=== PATIENT | male | born 1980 | race Caucasian/White ===

== ENCOUNTER 2024-04-25 18:46 | Inpatient (IN) | payer MEDICAID, OTHER ==
[~2024-04-25] VITALS: Ht 172.7 cm; Wt 74.7 kg
[2024-04-25 19:22] LABS: Basophils # (auto) 0.1 10 ^3/uL (0-0.2); Basophils % (auto) 0.8 % (0.0-2.0); Eosinophils # (auto) 0.1 10 ^3/uL (0-0.8); Eosinophils % (auto) 0.6 % (0.0-7.0); Hematocrit 49.6 % (41.0-53.0); Hemoglobin 15.9 g/dL (13.5-17.5); Lymphocytes # (auto) 2.1 10 ^3/uL (0.4-5.4); Mean Corpuscular Hemoglobin 30.1 pg (28.0-32.0); Mean Corpuscular Hgb Conc. 32.1 g/dL (32.0-36.0); Mean Corpuscular Volume 93.9 fL (80.0-100.0); Monocytes % (auto) 11.4 % (0.0-12.0); Neutrophils # (auto) 5.5 10 ^3/uL (1.6-8.6); Neutrophils % (auto) 63.2 % (37.0-80.0); Nucleated Red Blood Cells % 0.2 %; Platelet Count (auto) 245 10^3/uL (140-450); Red Blood Cells 5.28 10^6/uL (4.5-5.90); Red Cell Distribution Width 14.6 % (11.8-14.3); White Blood Cell 8.7 10^3/uL (4.4-10.8)
--- NOTE | 2024-04-25 19:24 | DVH ---
CHEST RADIOGRAPH Indication: sob Technique: Frontal and lateral view of the chest was obtained Comparison: None FINDINGS: Lines and Tubes: None Lungs: Clear Pleura: No effusion. No pneumothorax. Cardiomediastinal contours: Moderate cardiomegaly Bones: Unremarkable IMPRESSION: Moderate cardiomegaly.
[2024-04-25 19:41] LABS: Albumin 3.9 g/dL (3.2-4.8); Alkaline Phosphatase 101 U/L (46-116); Anion Gap 9 (5-15); BUN/Creatinine Ratio 16.3 (10.0-20.0); Calcium 9.8 mg/dL (8.7-10.4); Carbon Dioxide 25 mmol/L (20-31); Chloride 101 mmol/L (98-107); Potassium 4.2 mmol/L (3.5-5.1); Total Protein 6.3 g/dL (5.7-8.2)
[2024-04-25 19:44] LABS: Alanine Aminotransferase 184 U/L (7-40); Aspartate Aminotransferase 182 U/L (13-40); Bilirubin, Total 1.6 mg/dL (0.2-1.0); Blood Urea Nitrogen 25 mg/dL (9-23); Glucose 117 mg/dL (74-106); Sodium 135 mmol/L (136-145)
--- NOTE | 2024-04-25 20:35 | ED.PDOC ---
HPI Comments 43-year-old male with significant history of heart failure presents in the ED with cough x1 month and increase in dyspnea on exertion. Patient states dry cough x1 month he was diagnosed and treated for pneumonia about four weeks ago at [facility]. States over the past week or two he has been having difficulty in breathing walking over 20 ft coughing or shortness of breath any other related symptoms of chest pain, fever, chills, nausea, vomiting. Follows with cardiology on a [facility], states his last ejection fraction was 15%. Puts history of CHF, hypertension and borderline diabetes type 2. Patient was last hospital admission was not August of 2023 for CHF. Chief Complaint: Cough Time Seen by MD: 19:01 Primary Care Provider: lauro Reviewed Notes: Nurses Notes, Medications, Allergies Allergies: Coded Allergies: Azithromycin (Verified Allergy, Unknown, 04/25/24) Information Source: Patient Mode of Arrival: Wheelchair Past Medical History PAST MEDICAL HISTORY: CHF, DM, HTN Constitutional: denies: chills, diaphoresis, fatigue, fever, malaise, sweats, weakness, others EENTM: denies: blurred vision, double vision, ear bleeding, ear discharge, ear drainage, ear pain, ear ringing, eye pain, eye redness, hearing loss, mouth pain, mouth swelling, nasal discharge, nose bleeding, nose congestion, nose pain, photophobia, tearing, throat pain, throat swelling, voice changes, others Respiratory: reports: cough, SOB with excertion; denies: hemoptysis, orthopnea, SOB at rest, shortness of breath, stridor, wheezing, others Cardiovascular: denies: chest pain, dizzy spells, diaphoresis, Dyspnea on exertion, edema, irregular heart beat, left arm pain, lightheadedness, palpitations, PND, syncope, others Gastrointestinal: denies: abdomen distended, abdominal pain, blood streaked bowels, constipated, diarrhea, dysphagia, difficulty swallowing, hematemesis, melena, nausea, poor appetite, poor fluid intake, rectal bleeding, rectal pain, vomiting, others Genitourinary: denies: burning, dysuria, flank pain, frequency, hematuria, incontinence, penile discharge, penile sore, pain, testicle pain, testicle swelling, urgency, others Neurological: denies: dizziness, fainting, headache, left sided numbness, left sided weakness, numbness, paresthesia, pre-existing deficit, right sided numbness, right sided weakness, seizure, speech problems, tingling, tremors, weakness, others Musculoskeletal: denies: back pain, gout, joint pain, joint swelling, muscle pain, muscle stiffness, neck pain, others Integumetry: denies: bruises, change in color, change in hair/nails, dryness, laceration, lesions, lumps, rash, wounds, others Allergic/Immunocompromised: denies: Difficulty Healing, Frequent Infections, Hives, Itching, others Hematologic/Lymphatic: denies: anemia, blood clots, easy bleeding, easy bruising, swollen glands, others Endocrine: denies: excessive hunger, excessive sweating, excessive thirst, excessive urination, flushing, intolerance to cold, intolerance to heat, unexplained weight gain, unexplained weight loss, others Psychiatric: denies: anxiety, bipolar disorder, depression, hopeless, panic disorder, schizophrenia, sleepless, suicidal, others Physical Exam General Appearance: No Apparent Distress, Normal HEENT: Normal ENT Inspection, Pharynx Normal, TMs Normal Neck: Full Range of Motion, Non-Tender Respiratory: Chest Non-Tender, Lungs Clear, No Accessory Muscle Use, No Respira tory Distress, Normal Breath Sounds Cardiovascular: No Edema, No JVD, No Murmur, No Gallop, Normal Peripheral Pulses, Regular Rate/Rhythm Breast Exam: Deferred Gastrointestinal: No Organomegaly, Non Tender, No Pulsatile Mass, Normal Bowel Sounds, Soft Genitalia: Deferred Pelvic: Deferred Rectal: Deferred Extremities: No calf tenderness, Normal capillary refill, Normal inspection, Normal range of motion, Non-tender, No pedal edema Musculoskeletal : Apperance: Normal Neurologic: Alert, steamblaster II-XII nml as Tested, No Motor Deficits, Normal Affect, Normal Mood, No Sensory Deficits Cerebellar Function: Normal Reflexes: Normal Skin: Dry, Normal Color, Warm Lymphatic: No Adenopathy Was a procedure done? Was a procedure done?: No CP Differential Dx Differential Diagnosis: Heart Failure, OH, Pulmonary Embolus, PVC's Differential Diagnosis: CHF Differential Diagnosis: Myocardial Infarction X-Ray, Labs, Meds, VS Vital Signs Date Time Temp Pulse Resp B/P (MAP) Pulse Ox O2 Delivery O2 Flow Rate FiO2 04/25/24 20:03 118 19 97 Room Air 04/25/24 20:03 98.6 118 19 113/90 (98) 97 98.6 04/25/24 19:47 115 04/25/24 19:01 97.7 117 19 113/79 (90) 100 Lab Test 04/25/24 21:54 04/25/24 19:52 04/25/24 19:13 Range/Units Troponin I High Sensitivity 52 55 *H 56 *H </=54 ng/L White Blood Count 8.7 4.4-10.8 10^3/uL Red Blood Count 5.28 4.5-5.90 10^6/uL Hemoglobin 15.9 13.5-17.5 g/dL Hematocrit 49.6 41.0-53.0 % Mean Corpuscular Volume 93.9 80.0-100.0 fL Mean Corpuscular Hemoglobin 30.1 28.0-32.0 pg Mean Corpuscular Hemoglobin Concent 32.1 32.0-36.0 g/dL Red Cell Distribution Width 14.6 H 11.8-14.3 % Platelet Count 245 140-450 10^3/uL Mean Platelet Volume 9.1 6.9-10.8 fL Neutrophils (%) (Auto) 63.2 37.0-80.0 % Lymphocytes (%) (Auto) 24.0 10.0-50.0 % Monocytes (%) (Auto) 11.4 0.0-12.0 % Eosinophils (%) (Auto) 0.6 0.0-7.0 % Basophils (%) (Auto) 0.8 0.0-2.0 % Neutrophils # (Auto) 5.5 1.6-8.6 10 ^3/uL Lymphocytes # (Auto) 2.1 0.4-5.4 10 ^3/uL Monocytes # (Auto) 1.0 0-1.3 10 ^3/uL Eosinophils # (Auto) 0.1 0-0.8 10 ^3/uL Basophils # (Auto) 0.1 0-0.2 10 ^3/uL Nucleated Red Blood Cells 0.2 % Sodium Level 135 L 136-145 mmol/L Potassium Level 4.2 3.5-5.1 mmol/L Chloride Level 101 98-107 mmol/L Carbon Dioxide Level 25 20-31 mmol/L Anion Gap 9 5-15 Blood Urea Nitrogen 25 H 9-23 mg/dL Creatinine 1.53 H 0.700-1.30 mg/dL Glomerular Filtration Rate Calc 57 >90 mL/min BUN/Creatinine Ratio 16.3 10.0-20.0 Serum Glucose 117 H 74-106 mg/dL Calcium Level 9.8 8.7-10.4 mg/dL Total Bilirubin 1.6 H 0.2-1.0 mg/dL Aspartate Amino Transferase (AST) 182 H 13-40 U/L Alanine Aminotransferase (ALT) 184 H 7-40 U/L Alkaline Phosphatase 101 46-116 U/L B-Type Natriuretic Peptide 2582.97 0-100 pg/mL Total Protein 6.3 5.7-8.2 g/dL Albumin 3.9 3.2-4.8 g/dL X-Ray, Labs, Meds, VS Comment COURSE: ADMIT TELE EXTERNAL MEDICAL RECORDS REVIEWED: [facility] INDEPENDENT HISTORIANS: FATHER SOCIAL DETERMINANTS OF HEALTH: [NONE] LABS ORDERED: NONE REVIEWED AND INTERPRETED RESULTS: BNP 2586.96 TROP#1 56 TROP#2 55 TROP#3 52 AST 188 ALT 184 CREAT 1.53 GFR 57 IMAGING ORDERED: CHEST X-RAY SHOWS MODERATE CARDIOMEGALY WITHOUT ACUTE CARDIOPULMONARY FINDING TREATMENTS ORDERED: NONE PROCEDURES PERFORMED: NONE CRITICAL CARE TIME: NONE I HAVE DISCUSSED RESULTS AND PLAN OF CARE WITH THE PATIENT IN HIS FATHER . PATIENT AGREES WITH PLAN OF CARE. BASED ON HISTORY OF PRESENT ILLNESS, AND PHYSICAL EXAM, INABILITY TO OBTAIN PATIENT IS MEDICAL RECORDS FROM [facility]. PATIENT WILL BE FOR DYSPNEA ON EXERTION, CHF, ELEVATED BNP, CARDIOMEGALY. CARDIOLOGY CONSULT IN THE MORNING AND CARDIAC ECHO. Time of 1ST Reevaluation: 20:24 Reevaluation 1ST: Unchanged Patient Education/Counseling: Diagnosis, Treatment, Prognosis, Need For Follow Up Family Education/Counseling: Diagnosis, Treatment, Prognosis, Need For Follow U p Departure 1 Departure Time of Disposition: 20:32 Impression: Primary Impression: Elevated brain natriuretic peptide (BNP) level Additional Impressions: Dyspnea on exertion Cardiomegaly CHF (congestive heart failure) Qualified Codes: I50.9 - Heart failure, unspecified Disposition: ADMITTED INPATIENT Condition: Guarded Discharged With: Other (FATHER) Critical Care Note Critical Care Time?: No Stability Stability form required: No Heart Score Heart Score: Heart Score Response (Comments) Value History Slightly Suspicious 0 EKG Normal 0 Age <45 0 Risk Factors >3 or Hx ASHD 2 Troponin >3 x's Normal limit 2 Total 4 MICHAEL PALMA Apr 25, 2024 20:34
[2024-04-25] MEDS ORDERED: ACETAMINOPHEN 325 MG TAB PO PRN (22:45)
[2024-04-25] MEDS ORDERED: NITROGLYCERIN 0.4 MG SL TAB SL PRN (22:45)
[2024-04-25] MEDS ORDERED: MORPHINE SULFATE INJ 2 MG/ml SYRG IV PRN (22:45)
[2024-04-25 23:29] LABS: Blood Alcohol < 3.0 mg/dL (<10)
[2024-04-25 23:45] LABS: INR 1.5 (0.9-1.15); Partial Thromboplastin Time 29.9 SEC (24.5-34.5); Prothrombin Time 15.3 sec (9.3-11.8)
[2024-04-26] VITALS (8 sets, daily range): BP systolic 96–120; BP diastolic 66–80; PULSE 103–115; RESP 18–20; TEMP 97.5–98.4; O2SAT 94–100
[2024-04-26 00:17] LABS: Rapid Influenza A Negative (Negative); Rapid Influenza B Negative (Negative)
[2024-04-26 00:18] LABS: COVID19 ANTIGEN SOFIA FIA NEGATIVE (NEGATIVE)
--- NOTE | 2024-04-26 01:15 | DVHHPRES ---
History of Present Illness Resident Creating Document: ROXY REHMAN RESIDENT History of Present Illness Grant Mota with PMH of nothing CHF, monitor and DM, HTN presented to the ED with the chief complaints cough for 2 weeks and dyspnea today. The patient reports that two weeks ago, he started having a dry cough after visiting a place with a lot of snow. Today, the patient is experiencing difficulty breathing even with mild exertion, such as talking or climbing stairs. The patient denies fever, palpitations, chest pain, diaphoresis, and other acute associated symptoms. Past Medical History: Congestive heart failure (CHF) diagnosed in 2023 Prediabetes Hypertension (HTN) Surgical History: Denies any surgeries. 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 Dyspnea, Edema, Lt Headedness, Other Gastrointestinal: No: Nausea, Vomiting, Abdominal Pain, Diarrhea, Constipation, Melena, Hematochezia, Other Genitourinary: No Dysuria, No Frequency, No Incontinence, No Hematuria, No Retention, No Other Musculoskeletal: No: other, neck pain, shoulder pain, arm pain, back pain, hand pain, leg pain, foot pain Skin: No: Rash, Lesions, Jaundice, Bruising, Other Neurological: No: Weakness, Numbness, Incoordination, Change in speech, Confusion, Seizures, Other Allergies: Coded Allergies: Azithromycin (Verified Allergy, Unknown, 04/25/24) Medications Current Medications Medications Dose Ordered Sig/Ayan Route Start Time Stop Time Status Last Admin Dose Admin Sodium Chloride 10 ml Q8HR IV 04/26/24 06:00 Enoxaparin Sodium 40 mg DAILY SC 04/26/24 10:00 Acetaminophen 650 mg Q6HP PRN PO 04/25/24 22:45 Nitroglycerin 0.4 mg Q5MINP PRN SL 04/25/24 22:45 Morphine Sulfate 2 mg Q30M PRN IV 04/25/24 22:45 Exam Vital Signs Vital Signs Date Time Temp Pulse Resp B/P (MAP) Pulse Ox O2 Delivery O2 Flow Rate FiO2 04/25/24 23:38 97.9 109 17 109/72 (84) 97 97.9 04/25/24 20:03 Room Air Exam Pt is lying on bed General Appearance: Alert, Oriented X3, Cooperative, Not in acute distress HEENT: Atraumatic, Mucous membranes moist/pink Respiratory: Clear to auscultation, Normal air movement, Cardiovascular: Regular rate, Normal S1, Normal S2, Abdominal: Active bowel sounds, Soft, no distention, no tenderness Extremities: No edema, Normal pulses, No tenderness/swelling Skin: No Significant rash, Neuro: Normal speech, sensorimotor deficits none Psych/Mental Status: Mental status NL, Mood NL Labs/Xrays Labs Test 04/25/24 23:30 04/25/24 23:24 04/25/24 23:11 04/25/24 21:54 Range/Units Influenza Type A Antigen Negative Negative Influenza Type B Antigen Negative Negative SARS-CoV-2 Antigen (Rapid) Negative NEGATIVE Thyroid Stimulating Hormone (TSH) 2.73 0.55-4.78 uIU/mL Ammonia 33 H 11-32 umol/L Prothrombin Time 15.3 H 9.3-11.8 sec Prothrombin Time INR 1.50 H 0.9-1.15 Activated Partial Thromboplast Time 29.9 24.5-34.5 SEC D-Dimer, Quantitative 3.69 H 0.0-0.49 mg/L FEU Magnesium Level 2.0 1.6-2.6 mg/dL Troponin I High Sensitivity 52 </=54 ng/L Plasma/Serum Blood Alcohol < 3.0 <10 mg/dL Test 04/25/24 19:13 Range/Units White Blood Count 8.7 4.4-10.8 10^3/uL Red Blood Count 5.28 4.5-5.90 10^6/uL Hemoglobin 15.9 13.5-17.5 g/dL Hematocrit 49.6 41.0-53.0 % Mean Corpuscular Volume 93.9 80.0-100.0 fL Mean Corpuscular Hemoglobin 30.1 28.0-32.0 pg Mean Corpuscular Hemoglobin Concent 32.1 32.0-36.0 g/dL Red Cell Distribution Width 14.6 H 11.8-14.3 % Platelet Count 245 140-450 10^3/uL Mean Platelet Volume 9.1 6.9-10.8 fL Neutrophils (%) (Auto) 63.2 37.0-80.0 % Lymphocytes (%) (Auto) 24.0 10.0-50.0 % Monocytes (%) (Auto) 11.4 0.0-12.0 % Eosinophils (%) (Auto) 0.6 0.0-7.0 % Basophils (%) (Auto) 0.8 0.0-2.0 % Neutrophils # (Auto) 5.5 1.6-8.6 10 ^3/uL Lymphocytes # (Auto) 2.1 0.4-5.4 10 ^3/uL Monocytes # (Auto) 1.0 0-1.3 10 ^3/uL Eosinophils # (Auto) 0.1 0-0.8 10 ^3/uL Basophils # (Auto) 0.1 0-0.2 10 ^3/uL Nucleated Red Blood Cells 0.2 % Sodium Level 135 L 136-145 mmol/L Potassium Level 4.2 3.5-5.1 mmol/L Chloride Level 101 98-107 mmol/L Carbon Dioxide Level 25 20-31 mmol/L Anion Gap 9 5-15 Blood Urea Nitrogen 25 H 9-23 mg/dL Creatinine 1.53 H 0.700-1.30 mg/dL Glomerular Filtration Rate Calc 57 >90 mL/min BUN/Creatinine Ratio 16.3 10.0-20.0 Serum Glucose 117 H 74-106 mg/dL Calcium Level 9.8 8.7-10.4 mg/dL Total Bilirubin 1.6 H 0.2-1.0 mg/dL Aspartate Amino Transferase (AST) 182 H 13-40 U/L Alanine Aminotransferase (ALT) 184 H 7-40 U/L Alkaline Phosphatase 101 46-116 U/L B-Type Natriuretic Peptide 2582.97 0-100 pg/mL Total Protein 6.3 5.7-8.2 g/dL Albumin 3.9 3.2-4.8 g/dL Assessment/Plan Assessment/Plan # ? Acute on chronic systolic VS diastolic CHF -elevated BNP -ordered echocardiogram, pending -monitor -consider cardiology consultation if needed -hold GDMT for now due to given kidney function # Rule out ACS # ? NSTEMI -reviewed EKG, showing LBBB -mildly elevated troponin - added Aspirin # BALBIR likely vasomotor -we will monitor for now # rule out PE -elevated D-dimer -ordered CT angiogram # history of meth abuse -UDS pending # mild transaminitis -monitor lab # Hyperkalemia - on protocol - monitor lab PUD PPX: Protonix VTE PPX: Lovenox Diet: Cardiac diet Goals of care discussed with the patient for more than 27 minutes: Full code status Case discussed with Dr. Estevez and nurse Plan discussed with: Patient My Orders Orders - ROXY REHMAN RESIDENT Procedure Category Date Status Time Admit ADMIT 04/25/24 Transmitted 22:32 Allergies AIDEN 04/25/24 In Process 22:32 Code Status CODE 04/25/24 Transmitted 22:32 Sodium Chloride Lock PHA 04/26/24 In Process (Saline Lock Ns) 06:00 Enoxaparin Sodium PHA 04/26/24 In Process (Lovenox) 10:00 Complete Blood Count LAB 04/26/24 Logged 04:00 Comprehensive LAB 04/26/24 Logged Metabolic Panel 04:00 Cardiac DIET 04/26/24 Transmitted Diet-2gna,Lofat,Lochol Breakfast Echo 2d Mode Cardiac US 04/25/24 Logged DOP 22:32 Condition: Stable AIDEN 04/25/24 In Process 22:32 Acetaminophen Tablet PHA 04/25/24 In Process (Tylenol Tablet) 22:45 Nitroglycerin PHA 04/25/24 In Process Sublingual (Ntrostat 22:45 Morphine Sulfate PHA 04/25/24 In Process Injection 22:45 Oxygen By Nasal RT 04/25/24 Transmitted Cannula 22:32 Stat Ekg For Chest AIDEN 04/25/24 In Process Pain 22:32 Notify Of Changes AIDEN 04/25/24 In Process From Base 22:32 Dust Collector Attendant For AIDEN 04/25/24 In Process 24 Hours 22:32 Emergency Dysrhythmia AIDEN 04/25/24 In Process Protocol 22:32 Rhythm Strips Once AIDEN 04/25/24 In Process Every Shift 22:32 Urinalysis LAB 04/25/24 Logged 22:54 Drug Screen LAB 04/25/24 Logged 22:[address] 04/26/24 Logged Contrast 01:04 Date of Service: Apr 25, 2024 Billing Provider: CLINT ESTEVEZ MD Common Visit Codes: [id number] INP/OBS CARE (HIGH) ROXY REHMAN RESIDENT Apr 26, 2024 01:15 CLINT ESTEVEZ MD Apr 26, 2024 14:10
[2024-04-26 05:40] LABS: Basophils # (auto) 0 10 ^3/uL (0-0.2); Basophils % (auto) 0.4 % (0.0-2.0); Eosinophils # (auto) 0 10 ^3/uL (0-0.8); Eosinophils % (auto) 0.1 % (0.0-7.0); Hematocrit 48.6 % (41.0-53.0); Lymphocytes # (auto) 1.5 10 ^3/uL (0.4-5.4); Lymphocytes % (auto) 15.5 % (10.0-50.0); Mean Corpuscular Hemoglobin 30.6 pg (28.0-32.0); Mean Corpuscular Volume 92.5 fL (80.0-100.0); Monocytes % (auto) 10.1 % (0.0-12.0); Neutrophils # (auto) 7.2 10 ^3/uL (1.6-8.6); Neutrophils % (auto) 73.9 % (37.0-80.0); Nucleated Red Blood Cells % 0.2 %; Platelet Count (auto) 235 10^3/uL (140-450); Red Blood Cells 5.25 10^6/uL (4.5-5.90); Red Cell Distribution Width 14.4 % (11.8-14.3); White Blood Cell 9.8 10^3/uL (4.4-10.8)
[2024-04-26 05:57] LABS: Albumin 3.7 g/dL (3.2-4.8); Alkaline Phosphatase 104 U/L (46-116); Anion Gap 13 (5-15); BUN/Creatinine Ratio 13.3 (10.0-20.0); Blood Urea Nitrogen 21 mg/dL (9-23); Calcium 9.6 mg/dL (8.7-10.4); Chloride 100 mmol/L (98-107)
[2024-04-26 05:58] LABS: Total Protein 6.1 g/dL (5.7-8.2)
[2024-04-26] MEDS: SODIUM CHLOR 0.9% PF (SALINE LOCK) 10ML VIAL/SYR IV SCH (06:00)
[2024-04-26 06:29] LABS: Alanine Aminotransferase 536 U/L (7-40); Aspartate Aminotransferase 641 U/L (13-40); Bilirubin, Total 2.5 mg/dL (0.2-1.0); Carbon Dioxide 19 mmol/L (20-31); Glucose 108 mg/dL (74-106); Sodium 132 mmol/L (136-145)
[2024-04-26 06:32] LABS: Potassium 5.6 mmol/L (3.5-5.1)
[2024-04-26] MEDS: SODIUM BICARB 8.4% 50Meq/50ml SYR INJ IV ONE (07:06)
[2024-04-26] MEDS: DEXTROSE (50%) 50ML SYRG IV ONE (07:09)
[2024-04-26] MEDS: FUROSEMIDE 20 MG/2 ML VIAL IV ONE (07:10)
[2024-04-26] MEDS: InsuLIN REG 1unit/0.01ml Soln (100units/ml) IV ONE (07:10)
[2024-04-26] MEDS: ASPirin 81 mg TAB PO ONE (08:20)
[2024-04-26] MEDS ORDERED: ENOXAPARIN SOD 40 MG/0.4 ML SYRINGE SC SCH (10:00)
--- NOTE | 2024-04-26 10:08 | DVH ---
Bilateral lower extremity venous duplex Clinical History: elevated ddimer, pain Comparison: None Technique: Duplex Doppler evaluation of the deep venous systems of both lower extremities from the common femora l veins to the popliteal veins including color Doppler and spectral/pulsed waveform analysis was perf ormed. Findings: RIGHT SIDE: The common femoral vein demonstrates appropriate compressibility and waveform variability. There is compressibility/patency of the great saphenous vein at the proximal thigh. The femoral vein demonstrates appropriate compressibility and waveform variability. The deep femoral vein demonstrates appropriate compressibility and waveform variability. The popliteal vein demonstrates appropriate compressibility and waveform variability. There is normal compressibility at the tibioperoneal trunk. LEFT SIDE: The common femoral vein demonstrates appropriate compressibility and waveform variability. There is compressibility/patency of the great saphenous vein at the proximal thigh. The femoral vein demonstrates appropriate compressibility and waveform variability. The deep femoral vein demonstrates appropriate compressibility and waveform variability. The popliteal vein demonstrates appropriate compressibility and waveform variability. There is normal compressibility at the tibioperoneal trunk. Impression: No right or left femoropopliteal venous thrombosis.
[2024-04-26] MEDS: PANTOPRAZOLE 40 MG/10 ML VIAL INJ IV SCH (10:52)
[2024-04-26] MEDS: ENOXAPARIN SOD 100 MG/1 ML SYRINGE SC SCH (10:52)
--- NOTE | 2024-04-26 11:01 | DVHPNRES ---
Progress Note Date Seen: Apr 26, 2024 Resident Creating Document: HANNAH HOPPER RESIDENT Medical Necessity Reason Pt with a Central, PICC or Fol: No Subjective Review of Systems Patient is a 43-year-old male with past medical history of heart failure with reduced ejection fraction 15%, prediabetes, hypertension, who came in due to dyspnea. According to the patient, 2 weeks ago he contracted a flu-like illness with persistent cough from a sick contact which progressively worsened. Per patient, yesterday shortness of breaths and dyspnea worsened to the point where it was difficult for the patient to walk to the bathroom which is what prompted this visit to the hospital. Patient notes walking and exertion makes his shortness of breaths worse. Uses 2 pillows at night to sleep. BNP 2582, serial troponins 56, 55. EKG shows a left bundle branch block, however, unsure if this is new or not as previous EKGs not available for comparison. Chest x-ray showed moderate cardiomegaly. Past surgical history: Denies Home medications: Midodrine, metformin, losartan, Lopressor, spironolactone, melatonin Past Hospitalization: August 2023 for sepsis due to pneumonia Social & Personal history: Patient lives with family. Quit smoking cigarettes 6 months ago prior to that was smoking 1 pack per day for 25 years. Quit using vape 1 month ago. History of heavy alcohol use for 10 years, quit drinking 15 years ago. There is a remote history of meth use. Currently not using any drugs of abuse. Allergies: Azithromycin Patient seen and examined at bedside. Patient is alert and oriented to time, place person and responding to all questions. General: Fatigue Eyes: No Pain, No Vision change, No Conjunctivae inflammation, No Eyelid inflammation, No Other, No Redness ENT: No Ear pain, No Ear discharge, No Nose pain, Nose discharge, No Nose congestion, No Mouth pain, No Mouth swelling, No Throat pain, No Throat swelling, No Other Cardiovascular: No Chest Pain, No Palpitations, No Orthopnea, Dyspnea, No Edema, No Lt Headedness, No Other Respiratory: Dry cough, No Shortness of breath, SOB with exertion, No Wheezing, No Hemoptysis, No Pleuritic Pain, No Sputum, No Other Gastrointestinal: No Nausea, No Vomiting, No Abdominal Pain, No Diarrhea, No Constipation, No Melena, No Hematochezia, No Other Genitourinary: Urgency, No Dysuria, No Frequency, No Incontinence, No Hematuria, No Retention, No Other Musculoskeletal: No other, No neck pain, No shoulder pain, No arm pain, No back pain, No hand pain, No leg pain, No foot pain Skin: No Rash, No Lesions, No Jaundice, No Bruising, No Other Objective vital signs Vital Sign Date Time Temp Pulse Resp B/P (MAP) Pulse Ox O2 Delivery O2 Flow Rate FiO2 04/26/24 09:00 98.4 108 18 110/80 (90) 100 98.4 04/26/24 00:20 Room Air* 0 21 Total Intake and Output 04/25/24 04/25/24 04/26/24 14:59 22:59 06:59 Intake Total 250 ml Balance 250 ml medications Current Medications Medications Dose Ordered Sig/Ayan Route Start Time Stop Time Status Last Admin Dose Admin Sodium Chloride 10 ml Q8HR IV 04/26/24 06:00 04/26/24 06:00 10 ML Acetaminophen 650 mg Q6HP PRN PO 04/25/24 22:45 Nitroglycerin 0.4 mg Q5MINP PRN SL 04/25/24 22:45 Morphine Sulfate 2 mg Q30M PRN IV 04/25/24 22:45 Aspirin 81 mg DAILY PO 04/27/24 10:00 Enoxaparin Sodium 70 mg Q12HR SC 04/26/24 10:00 Pantoprazole Sodium 40 mg DAILY IV 04/26/24 10:00 Examination General Appearance: Cooperative. Well developed. Well nourished. NAD Head Exam: Normal inspection Neck Exam: Normal inspection. Non-tender. Normal alignment Pulmonary/Respiratory: Chest non-tender. Clear bilateral breath sounds, no crackles, no wheezing. Cardiovascular/Chest: Regular rate and rhythm. No murmurs. No JVD. Peripheral Pulses: 2+ Radial (R). 2+ Radial (L). 2+ Pedal (R). 2+ Pedal (L) Abdominal Exam: Normal bowel sounds. Soft. normal abdomen, no visible veins, Nontender. No hepatospenomegaly. No masses Lower extremities: Negative lower extremity edema Neuro/Mental Status: A&O x4. Coherent. Thoughts/Psych: Normal thought pattern. Appropriate mood and affect. Good judgement and insight Skin Exam: Normal inspection. Normal color. Warm. Dry laboratory and microbiology Laboratory Tests 04/26/24 04:51 Test 04/26/24 04:51 Range/Units Serum Glucose 108 H 74-106 mg/dL Labs and/or images reviewed: Labs reviewed by me, Image(s) reviewed by me Problem List/Assessment/Plan Problem List/Assessment/Plan Acute on chronic heart failure with reduced ejection fraction 15% Likely NSTEMI History of methamphetamine abuse End-stage dilated cardiomyopathy - BNP 2582 - CXR: Moderate cardiomegaly - aspirin 81 mg - consulted Cardiology for possible catheterization. Planned ischemic workup in the outpatient has not been done, patient has a left bundle branch block on the EKG, uncertain whether or not new has no previous EKG available for comparison. We will request records from [facility] - ordered echocardiogram: lvef 10% by visual estimate. end stage dilated CM. RV dysfunction. biatrial enlargement. moderate to severe mitral regurg and tricuspid regurg Ruling out pulmonary embolism - lower extremity Doppler: No right or left femoropopliteal venous thrombosis - D-dimer 3.69 - awaiting V/Q scan results - therapeutic Lovenox 70 mg b.i.d. subcutaneous BALBIR, likely hemodynamically mediated?VMN Hyperkalemia - hyperkalemia protocol with sodium bicarb 50 mL IV once, IV Lasix 20 mg once, insulin 10 units and dextrose - monitor Transaminitis - total bilirubin 2.5, AST 641, ALT 536, alkaline phosphatase 104 - monitor PUD prophylaxis: protonix 40mg Goals of care: Full code, discussed for >16 minutes on 04/26/2024 Plan discussed with patient Plan discussed with Dr. Dutta Plan discussed with: Patient, Other (RN) My Orders My Orders Orders - HANNAH HOPPER RESIDENT Procedure Category Date Status Time * Cardiology Consult CONS 04/26/24 Verified 10:49 Date of Service: Apr 26, 2024 Billing Provider: LOLY DUTTA MD Common Visit Codes: [id number] INP/OBS CARE(HIGH) HANNAH HOPPER Apr 26, 2024 11:01 LOLY DUTTA MD Apr 27, 2024 16:11
--- NOTE | 2024-04-26 11:17 | DVHSR ---
APPROVED REPORT EXAM: Two-dimensional and M-mode echocardiogram with Doppler and color Doppler. Blood Pressure: 115/80 mmHg INDICATION CHF RISK FACTORS Height: 68, Weight: 164 DIMENSIONS LVDd6.5 (3.8-5.7cm)LA (2D)4.2 (1.9-4.0cm)Aortic Root3.2 (2.0-3.7cm) LVDs6.4 (2.5-4.0cm)LA (MM) (1.9-4.0cm)Aortic Cusp Exc1.6 (1.5-2.0cm) EF (%) 3.0 (55-70%)Rt. Atrium5.6 (1.9-4.0cm)Asc. Aorta cm IVSd0.9 (0.7-1.1cm)RV (D) (1.8-2.4cm) PWd1.0 (0.7-1.1cm) Mitral Valve MitralMitral Stenosis E wave1.30m/sMV Mean GR.mmHg A wave1.02m/sMV Peak GR.69mmHg E/A ratio1.32D MVAcm2 DECEL [id number] 1/2 Stfr53mo IVRTmsDop MVA5.65cm2 Aortic Valve Aortic ValveAortic Stenosis V10.69m/Keith Mean GR.2mmHg V20.83m/Keith Peak GR.3mmHg LVOT Diameter2.2 (1.8-2.4cm)Doppler AVA3.16cm2 Pulmonic Valve V20.84m/s Tricuspid Valve TR Velocity2.39m/s [id number] Conclusion lvef 10% by visual estimate end stage dilated CM RV dysfunction biatrial enlargement moderat to severe mitral regurg and tricuspid regurg
--- NOTE | 2024-04-26 12:19 | DVHINCON2 ---
[facility] 04/26/24 1219: Date Seen: Apr 26, 2024 Referring Physician MD [place] resident Reason for Consultation possible ischemic workup History of Present Illness This is a 43-year-old male patient who presents to the emergency room with chief complaint of cough and shortness of breath. Patient reports that he began having a cough approximately two weeks ago. He reports feeling short of breath for the last three days. He comes to the emergency room for further evaluation. Cardiology has now been consulted for possible ischemic workup. Initial twelve electrocardiogram reveals sinus tachycardia with left bundle branch block and PVC with baseline wander seen in multiple leads. Initial troponin level of 56ng/L with flat trend thereafter. Initial BNP level of 2582.97pg/mL. Significant past medical history includes congestive heart failure, hypertension, previous amphetamine use, tobacco use, and alcohol use. The patient reports that he sees personnel supervisor in the outpatient setting. He denies any previous ischemic workup in the past. Past Medical History Past medical history reviewed. No other significant than mentioned above. Past Surgical History Denies all previous surgeries Family History: FH: congestive heart failure G8 FATHER FH: dementia FH: lung cancer G8 MOTHER Family History Family history reviewed. Social History Admits to previous methamphetamine abuse Patient has a 25 pack-year history Patient admits to previous alcohol abuse, states he has not had any alcohol in 15 years Allergies: Coded Allergies: Azithromycin (Verified Allergy, Unknown, 04/25/24) Home Meds No Active Prescriptions or Reported Meds Home Meds Home medications reviewed. Current Medications Current Medications Medications (Trade) Dose Ordered Sig/Ayan Route PRN Reason Start Time Stop Time Status Last Admin Sodium Chloride (Saline Lock Ns) 10 ml Q8HR IV 04/26/24 06:00 04/26/24 06:00 Enoxaparin Sodium (Lovenox) 40 mg DAILY SC 04/26/24 10:00 04/26/24 06:54 DC Acetaminophen (Tylenol Tablet) 650 mg Q6HP PRN PO PAIN SCALE 1-3 OR TEMP>100.4 04/25/24 22:45 Nitroglycerin (Ntrostat Sublingual) 0.4 mg Q5MINP PRN SL FOR CHEST PAIN 04/25/24 22:45 Morphine Sulfate 2 mg Q30M PRN IV FOR CHEST PAIN 04/25/24 22:45 Aspirin 81 mg DAILY PO 04/27/24 10:00 Enoxaparin Sodium (Lovenox) 70 mg Q12HR SC 04/26/24 10:00 04/26/24 10:52 Pantoprazole Sodium (Protonix) 40 mg DAILY IV 04/26/24 10:00 04/26/24 10:52 Review of Systems Constitutional: No symptom reported Ears, Nose, & Throat: No symptom reported Eyes: No symptom reported Neurological: No symptoms reported Pulmonary/Respiratory: Cough, shortness of breath Cardiovascular: No symptom reported Gastrointestinal: No symptom reported Genitourinary: No symptom reported Musculoskeletal: No symptom reported Skin: No symptom reported Psychiatric: No symptom reported Endocrine: No symptom reported Hematologic/Lymphatic: No symptom reported Vital Signs Vital Signs Date Time Temp Pulse Resp B/P (MAP) Pulse Ox O2 Delivery O2 Flow Rate FiO2 04/26/24 09:00 98.4 108 18 110/80 (90) 100 98.4 04/26/24 00:20 Room Air* 0 21 Physical Exam General Appearance: Cooperative. Well-developed. Well-nourished. No acute distress. Pulmonary/Respiratory: Clear, bilateral breaths sounds. Cardiovascular/Chest: Regular rate and rhythm. Peripheral Pulses: 2+ Radial (R). 2+ Radial (L). 2+ Pedal (R). 2+ Pedal (L) Abdominal Exam: Normal bowel sounds. Ankle Exam: Negative ankle edema Lower extremities: Negative lower extremity edema Neuro/Mental Status: A/OX4, coherent. Thoughts/Psych: Normal thought pattern. Appropriate mood and affect. Good judgment and insight. Appearance: No acute distress. Skin Exam: Normal inspection. Normal color. Warm and dry. Labs/Diagnostic Data Labs Test 04/26/24 04:51 04/25/24 23:30 04/25/24 23:24 04/25/24 23:11 Range/Units White Blood Count 9.8 4.4-10.8 10^3/uL Red Blood Count 5.25 4.5-5.90 10^6/uL Hemoglobin 16.0 13.5-17.5 g/dL Hematocrit 48.6 41.0-53.0 % Mean Corpuscular Volume 92.5 80.0-100.0 fL Mean Corpuscular Hemoglobin 30.6 28.0-32.0 pg Mean Corpuscular Hemoglobin Concent 33.0 32.0-36.0 g/dL Red Cell Distribution Width 14.4 H 11.8-14.3 % Platelet Count 235 140-450 10^3/uL Mean Platelet Volume 9.4 6.9-10.8 fL Neutrophils (%) (Auto) 73.9 37.0-80.0 % Lymphocytes (%) (Auto) 15.5 10.0-50.0 % Monocytes (%) (Auto) 10.1 0.0-12.0 % Eosinophils (%) (Auto) 0.1 0.0-7.0 % Basophils (%) (Auto) 0.4 0.0-2.0 % Neutrophils # (Auto) 7.2 1.6-8.6 10 ^3/uL Lymphocytes # (Auto) 1.5 0.4-5.4 10 ^3/uL Monocytes # (Auto) 1.0 0-1.3 10 ^3/uL Eosinophils # (Auto) 0 0-0.8 10 ^3/uL Basophils # (Auto) 0 0-0.2 10 ^3/uL Nucleated Red Blood Cells 0.2 % Sodium Level 132 L 136-145 mmol/L Potassium Level 5.6 *H 3.5-5.1 mmol/L Chloride Level 100 98-107 mmol/L Carbon Dioxide Level 19 L 20-31 mmol/L Anion Gap 13 5-15 Blood Urea Nitrogen 21 9-23 mg/dL Creatinine 1.58 H 0.700-1.30 mg/dL Glomerular Filtration Rate Calc 55 >90 mL/min BUN/Creatinine Ratio 13.3 10.0-20.0 Serum Glucose 108 H 74-106 mg/dL Hemoglobin A1c 5.8 H <5.7 % A1C Calcium Level 9.6 8.7-10.4 mg/dL Total Bilirubin 2.5 H 0.2-1.0 mg/dL Aspartate Amino Transferase (AST) 641 H 13-40 U/L Alanine Aminotransferase (ALT) 536 H 7-40 U/L Alkaline Phosphatase 104 46-116 U/L Total Protein 6.1 5.7-8.2 g/dL Albumin 3.7 3.2-4.8 g/dL Influenza Type A Antigen Negative Negative Influenza Type B Antigen Negative Negative SARS-CoV-2 Antigen (Rapid) Negative NEGATIVE Thyroid Stimulating Hormone (TSH) 2.73 0.55-4.78 uIU/mL Ammonia 33 H 11-32 umol/L Test 04/25/24 21:54 04/25/24 19:13 Range/Units Prothrombin Time 15.3 H 9.3-11.8 sec Prothrombin Time INR 1.50 H 0.9-1.15 Activated Partial Thromboplast Time 29.9 24.5-34.5 SEC D-Dimer, Quantitative 3.69 H 0.0-0.49 mg/L FEU Magnesium Level 2.0 1.6-2.6 mg/dL Troponin I High Sensitivity 52 </=54 ng/L Plasma/Serum Blood Alcohol < 3.0 <10 mg/dL B-Type Natriuretic Peptide 2582.97 0-100 pg/mL Assessment NSTEMI, rule out coronary ischemia Acute on chronic decompensated HFrEF, NYHA class III Mitral and tricuspid valve regurgitation, moderate to severe degree Hypertension Acute kidney injury Transaminitis History of polysubstance abuse Tobacco use Plan/Recommendation We will continue with the following plan/recommendations (Dr. Rosenbaum): * Transthoracic echocardiogram reveals EF 10% * Initiate guideline directed medical therapy for CHF as renal function permits * Strict intake and output, daily weights, maintain fluid restriction * Preload and afterload reduction * Close Cardiac surveillance * Nuclear stress test Case reviewed and discussed with . The patient was offered a nuclear stress test. Procedure discussed with the patient full detail. The patient understands and agrees to undergo the procedure. We will schedule the patient for a nuclear stress test at first availability. Thank you for allowing us to care for this patient. Please call with any questions or concerns. Critical care time spent: 40 minutes This medical document was created using an electronic medical record system with voice recognition software and computerized dictation system. Although this document has been carefully reviewed, there might still be some phonetic and typographical errors. Occasional wrong-word or ``sound-alike substitutions may have occurred due to the inherent limitations of voice recognition software. These areas are purely typographical due to imperfections of the software programs and do not reflect any compromise in the patient's medical care. Please read the chart carefully and recognize, using context, where these substitutions have occurred. Plan discussed with: Patient NYHA Physical activity limitations: Class3(Marked) ordinary (activity causes symtoms) Date of Service: Apr 26, 2024 Billing Provider: ENMA GILMORE Cardiology Common Codes: [id number] INP/OBS CARE (High) Cardiology Consultation Codes: 94773-[id number] CONSULT <45MIN CHRISTINE ROSENBAUM MD 04/26/24 1813: Family History: FH: congestive heart failure G8 FATHER FH: dementia FH: lung cancer G8 MOTHER Allergies: Coded Allergies: Azithromycin (Verified Allergy, Unknown, 04/25/24) Home Meds No Active Prescriptions or Reported Meds Plan/Recommendation end stage CHF, active drug abuse abnormal ecg nuclear stress mpi poor prognosis given lack of compliance Date of Service: Apr 26, 2024 Billing Provider: CHRISTINE ROSENBAUM MD Cardiology Common Codes: NOT BILLABLE ENMA G[facility] Apr 26, 2024 12:19 CHRISTINE ROSENBAUM MD Apr 26, 2024 18:13
[2024-04-26] MEDS ORDERED: REGADENOSON 0.4 MG/5 ML SYRG IV ONE (13:28)
--- NOTE | 2024-04-26 13:30 | ECG ---
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
--- NOTE | 2024-04-26 13:30 | ECG ---
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
[2024-04-26] MEDS: REGADENOSON 0.4 MG/5 ML SYRG IV ONE (13:45)
[2024-04-26] MEDS: METOPROLOL SUCCINATE XL 50 MG TAB PO ONE (16:30)
[2024-04-26] MEDS ORDERED: FUROSEMIDE 40 MG/4 ML VIAL IV SCH (18:00)
--- NOTE | 2024-04-26 18:04 | DVHSR ---
APPROVED REPORT Exam: Nuclear Stress Test Indication: CHF Stress Tech: Joanna Rizzo Ht: 5 ft 8 in Wt: 164 lbs BSA: 1.88 m2 HR: 104 bpm BP: 102/68 mmHg BMI: 24.93 Rhythm: See Baseline Medical History Medical History: CHF, Prediabetic, HTN, EF 10%, former smoker Allergies: Azithromycin, Avocado Stress Test Details Stress Test: Pharmacologic stress testing performed using 0.4 mg of regadenoson per 5 mL given IV ov er 10 seconds. Reason for pharmacologic stress test: CHF. HR Resting HR: 104 bpmMax Heart Rate (APMHR): 177.197393 bpm Max HR Achieved: 107 bpmTarget HR (85% APMHR): 150.109510 bpm % of APMHR: 60.45 Recovery HR: 104 bpm BP Resting BP: 102/68 mmHg Recovery BP: 107/70 mmHg ECG Resting ECG: See Baseline Clinical Reason for Termination: Completed protocol Nurse Comments Uneventful test Stress ECG Conclusion severe dilated LV LVEF 11% decreased perfusion throughout myocraridum, fixed defect in septum and anterior wall , normal perfusi on only in lateral wall no relevant ischemai noted NM EXAM: Myocardial Perfusion REST/STRESS Imaging Protocol: Rest Tc-99m/Stress Tc-99m 1 day Resting Data Rest SPECT myocardial perfusion imaging was performed in supine position 45 minutes following the int ravenous injection of 12.3 mCi of Tc-99m Sestamibi. Time of rest injection: 0915 Time of rest imagin Administration Route: IV Administration Site: Left AC Pharmacologic Stress Pharmacologic stress test was performed by injecting Regadenoson 0.4 mg IV push followed by the intra venous injection of 31.2 mCi of Tc-99m Sestamibi. Time of stress injection: 1030 Time of stress imagin Administration Route: IV Administration Site: Left AC Gated Stress SPECT was performed 180 minutes after stress injection. The images were gated to evaluate regional wall motion and calculate left ventricular ejection fracti on. Nuclear Conclusion severe dilated LV LVEF 11% decreased perfusion throughout myocraridum, fixed defect in septum and anterior wall , normal perfusi on only in lateral wall no relevant ischemai noted
[2024-04-26] MEDS ORDERED: DEXTROSE (50%) 50ML SYRG IV PRN (20:00)
[2024-04-26] MEDS: InsuLIN REG 1unit/0.01ml Soln (100units/ml) SC SCH (20:00)
[2024-04-26] MEDS: ACCU-CHEK COMFORT CURVE STRIP VI SCH (20:12)
[2024-04-26] MEDS: ENOXAPARIN SOD 80 MG/0.8ML SYRINGE SC SCH (21:20)
[2024-04-27] VITALS (7 sets, daily range): BP systolic 91–107; BP diastolic 59–75; PULSE 92–99; RESP 17–20; TEMP 97.2–98.1; O2SAT 93–100
[2024-04-27 06:13] LABS: Basophils # (auto) 0.1 10 ^3/uL (0-0.2); Basophils % (auto) 0.7 % (0.0-2.0); Eosinophils # (auto) 0.1 10 ^3/uL (0-0.8); Eosinophils % (auto) 0.8 % (0.0-7.0); Hematocrit 47.7 % (41.0-53.0); Hemoglobin 15.5 g/dL (13.5-17.5); Lymphocytes # (auto) 2.2 10 ^3/uL (0.4-5.4); Lymphocytes % (auto) 26.8 % (10.0-50.0); Mean Corpuscular Hemoglobin 30.2 pg (28.0-32.0); Mean Corpuscular Hgb Conc. 32.6 g/dL (32.0-36.0); Mean Corpuscular Volume 92.6 fL (80.0-100.0); Monocytes # (auto) 0.9 10 ^3/uL (0-1.3); Monocytes % (auto) 11.1 % (0.0-12.0); Neutrophils # (auto) 5.1 10 ^3/uL (1.6-8.6); Neutrophils % (auto) 60.6 % (37.0-80.0); Nucleated Red Blood Cells % 0.3 %; Platelet Count (auto) 219 10^3/uL (140-450); Red Blood Cells 5.15 10^6/uL (4.5-5.90); White Blood Cell 8.3 10^3/uL (4.4-10.8)
[2024-04-27 06:27] LABS: Anion Gap 12 (5-15); Carbon Dioxide 24 mmol/L (20-31); Chloride 101 mmol/L (98-107); Sodium 137 mmol/L (136-145)
[2024-04-27 06:29] LABS: Calcium 8.9 mg/dL (8.7-10.4)
[2024-04-27 06:33] LABS: BUN/Creatinine Ratio 15.3 (10.0-20.0); Blood Urea Nitrogen 21 mg/dL (9-23); Glucose 97 mg/dL (74-106)
[2024-04-27 06:39] LABS: Potassium 3.4 mmol/L (3.5-5.1)
[2024-04-27] MEDS: METOPROLOL SUCCINATE XL 50 MG TAB PO SCH (09:38)
[2024-04-27] MEDS: EMPAGLIFLOZIN 10 MG TAB PO SCH (09:38)
[2024-04-27] MEDS: ASPirin 81 mg TAB PO SCH (09:39)
[2024-04-27] MEDS: FUROSEMIDE 20 MG TAB PO SCH (09:50)
[2024-04-27 16:03] LABS: Triglycerides 99 mg/dL (< 150)
[2024-04-27 16:05] LABS: Cholesterol 131 mg/dL (< 200)
[2024-04-27 16:08] LABS: HDL Cholesterol 22 mg/dL (40-59); LDL Cholesterol 101 mg/dL (< 100)
--- NOTE | 2024-04-27 16:44 | DVHPNRES ---
Progress Note Date Seen: Apr 27, 2024 Resident Creating Document: HANNAH HOPPER RESIDENT Medical Necessity Reason Pt with a Central, PICC or Fol: No Subjective Review of Systems Patient is a 43-year-old male with past medical history of heart failure with reduced ejection fraction 15%, prediabetes, hypertension, who came in due to dyspnea. According to the patient, 2 weeks ago he contracted a flu-like illness with persistent cough from a sick contact which progressively worsened. Per patient, yesterday shortness of breaths and dyspnea worsened to the point where it was difficult for the patient to walk to the bathroom which is what prompted this visit to the hospital. Patient notes walking and exertion makes his shortness of breaths worse. Uses 2 pillows at night to sleep. BNP 2582, serial troponins 56, 55. EKG shows a left bundle branch block, however, unsure if this is new or not as previous EKGs not available for comparison. Chest x-ray showed moderate cardiomegaly. Past surgical history: Denies Home medications: Midodrine, metformin, losartan, Lopressor, spironolactone, melatonin Past Hospitalization: August 2023 for sepsis due to pneumonia Social & Personal history: Patient lives with family. Quit smoking cigarettes 6 months ago prior to that was smoking 1 pack per day for 25 years. Quit using vape 1 month ago. History of heavy alcohol use for 10 years, quit drinking 15 years ago. There is a remote history of meth use. Currently not using any drugs of abuse. Allergies: Azithromycin Patient seen and examined at bedside. Patient is alert and oriented to time, place person and responding to all questions. Objective vital signs Vital Sign Date Time Temp Pulse Resp B/P (MAP) Pulse Ox O2 Delivery O2 Flow Rate FiO2 04/27/24 09:38 73 107/71 04/27/24 09:00 97.8 20 100 97.8 04/27/24 08:00 Nasal Cannula* 2 28 Total Intake and Output 04/26/24 04/26/24 04/27/24 15:00 23:00 07:00 Intake Total 1000 ml 960 ml Output Total 850 ml Balance 1000 ml 110 ml medications Current Medications Medications Dose Ordered Sig/Ayan Route Start Time Stop Time Status Last Admin Dose Admin Sodium Chloride 10 ml Q8HR IV 04/26/24 06:00 04/27/24 14:00 10 ML Acetaminophen 650 mg Q6HP PRN PO 04/25/24 22:45 Nitroglycerin 0.4 mg Q5MINP PRN SL 04/25/24 22:45 Morphine Sulfate 2 mg Q30M PRN IV 04/25/24 22:45 Aspirin 81 mg DAILY PO 04/27/24 10:00 04/27/24 09:39 81 MG Pantoprazole Sodium 40 mg DAILY IV 04/26/24 10:00 04/27/24 09:39 40 MG Enoxaparin Sodium 70 mg Q12HR SC 04/26/24 22:00 04/27/24 09:40 70 MG Furosemide 20 mg DAILY PO 04/27/24 10:00 Metoprolol Succinate 25 mg DAILY PO 04/27/24 10:00 04/27/24 09:38 25 MG Empaglifozin 10 mg DAILY PO 04/27/24 10:00 04/27/24 09:38 10 MG Diagnostic Test (Pha) 1 strip IQ4HR 04/26/24 20:00 04/27/24 11:31 1 STRIP Insulin Human Regular IQ4HR SC 04/26/24 20:00 04/27/24 09:49 3 UNITS Dextrose 50 ml UD PRN IV 04/26/24 20:00 Examination General Appearance: Cooperative. Well developed. Well nourished. NAD Head Exam: Normal inspection Neck Exam: Normal inspection. Non-tender. Normal alignment Pulmonary/Respiratory: Chest non-tender. Clear bilateral breath sounds, no crackles, no wheezing. Cardiovascular/Chest: Regular rate and rhythm. No murmurs. No JVD. Peripheral Pulses: 2+ Radial (R). 2+ Radial (L). 2+ Pedal (R). 2+ Pedal (L) Abdominal Exam: Normal bowel sounds. Soft. normal abdomen, no visible veins, Nontender. No hepatospenomegaly. No masses Lower extremities: Negative lower extremity edema Neuro/Mental Status: A&O x4. Coherent. Thoughts/Psych: Normal thought pattern. Appropriate mood and affect. Good judgement and insight Skin Exam: Normal inspection. Normal color. Warm. Dry laboratory and microbiology Laboratory Tests 04/27/24 05:23 Test 04/27/24 05:23 Range/Units Serum Glucose 97 74-106 mg/dL Labs and/or images reviewed: Labs reviewed by me, Image(s) reviewed by me Problem List/Assessment/Plan Problem List/Assessment/Plan Acute on chronic heart failure with reduced ejection fraction 15% Likely NSTEMI History of methamphetamine abuse End-stage dilated cardiomyopathy - BNP 2582 - CXR: Moderate cardiomegaly - aspirin 81 mg - consulted Cardiology for possible catheterization. Planned ischemic workup in the outpatient has not been done, patient has a left bundle branch block on the EKG, uncertain whether or not new has no previous EKG available for comparison. We will request records from [facility] - ordered echocardiogram: lvef 10% by visual estimate. end stage dilated CM. RV dysfunction. biatrial enlargement. moderate to severe mitral regurg and tricuspid regurg - patient completed Cardiolite stress test which revealed ejection fraction 11%, no relevant ischemia noted. Continue GDM T for CHF as tolerated. - social service consult by Cardiology for possible life vest Ruling out pulmonary embolism - lower extremity Doppler: No right or left femoropopliteal venous thrombosis - D-dimer 3.69 - awaiting V/Q scan results - therapeutic Lovenox 70 mg b.i.d. subcutaneous BALBIR, likely hemodynamically mediated?VMN Hyperkalemia - hyperkalemia protocol with sodium bicarb 50 mL IV once, IV Lasix 20 mg once, insulin 10 units and dextrose - monitor Transaminitis - total bilirubin 2.5, AST 641, ALT 536, alkaline phosphatase 104 - monitor PUD prophylaxis: protonix 40mg Goals of care: Full code, discussed for >16 minutes on 04/26/2024 Plan discussed with patient Plan discussed with Dr. Dutta Plan discussed with: Patient, Other (RN) My Orders My Orders Orders - HANNAH HOPPER Procedure Category Date Status Time Basic Metabolic Panel LAB 04/28/24 Verified 04:00 Date of Service: Apr 27, 2024 Billing Provider: LOLY DUTTA MD Common Visit Codes: [id number] INP/OBS CARE(HIGH) HANNAH HOPPER Apr 27, 2024 16:44 LOLY DUTTA MD Apr 30, 2024 15:53
[2024-04-27] MEDS: POTASSIUM EFFERVESENT TAB 25 MEQ PO ONE (16:51)
[2024-04-28 01:00] VITALS: BP 102/63; PULSE 85; RESP 20; TEMP 98.5; O2SAT 100
[2024-04-28 05:00] VITALS: BP 105/60; PULSE 83; RESP 20; TEMP 98; O2SAT 99
[2024-04-28 06:55] LABS: Basophils # (auto) 0 10 ^3/uL (0-0.2); Basophils % (auto) 0.5 % (0.0-2.0); Eosinophils # (auto) 0.2 10 ^3/uL (0-0.8); Eosinophils % (auto) 1.9 % (0.0-7.0); Hematocrit 48.7 % (41.0-53.0); Hemoglobin 15.5 g/dL (13.5-17.5); Lymphocytes # (auto) 2.3 10 ^3/uL (0.4-5.4); Lymphocytes % (auto) 28.5 % (10.0-50.0); Mean Corpuscular Hemoglobin 29.7 pg (28.0-32.0); Mean Corpuscular Hgb Conc. 31.8 g/dL (32.0-36.0); Mean Corpuscular Volume 93.3 fL (80.0-100.0); Monocytes % (auto) 12.3 % (0.0-12.0); Neutrophils # (auto) 4.5 10 ^3/uL (1.6-8.6); Neutrophils % (auto) 56.8 % (37.0-80.0); Nucleated Red Blood Cells % 0.2 %; Platelet Count (auto) 242 10^3/uL (140-450); Red Blood Cells 5.22 10^6/uL (4.5-5.90); White Blood Cell 7.9 10^3/uL (4.4-10.8)
[2024-04-28 07:06] LABS: Anion Gap 10 (5-15); Carbon Dioxide 25 mmol/L (20-31); Chloride 103 mmol/L (98-107); Potassium 3.9 mmol/L (3.5-5.1); Sodium 138 mmol/L (136-145)
[2024-04-28 07:10] LABS: Glucose 100 mg/dL (74-106)
[2024-04-28 07:12] LABS: BUN/Creatinine Ratio 15.4 (10.0-20.0); Blood Urea Nitrogen 21 mg/dL (9-23)
[2024-04-28 08:00] VITALS: PULSE 86
[2024-04-28 09:00] VITALS: BP 93/63; PULSE 87; RESP 15; TEMP 97.9; O2SAT 98
[2024-04-28] MEDS: VALSARTAN 80 MG TAB PO SCH (09:36)
[2024-04-28] MEDS ORDERED: FURO20TA4 PO (11:39)
[2024-04-28] MEDS ORDERED: METO-6 PO (11:39)
[2024-04-28] MEDS ORDERED: VALS1TAB57 PO (11:39)
[2024-04-28] MEDS ORDERED: EMPA1TAB PO (11:39)
[2024-04-28] MEDS ORDERED: ATOR20TA50 PO (11:39)
[2024-04-28] MEDS ORDERED: ASPI-325 PO (11:39)
[2024-04-28 13:00] VITALS: BP 93/62; PULSE 99; RESP 17; TEMP 97.5; O2SAT 100
[2024-04-28 15:12] VITALS: BP 93/63; PULSE 87; TEMP 36.4
--- NOTE | 2024-04-28 19:36 | DVHDSRES ---
Discharge Summary Date of Admission Resident Creating Document: HANNAH HOPPER RESIDENT Apr 25, 2024 at 22:32 Date of Discharge: Apr 28, 2024 Admitting Diagnosis Dyspnea Labs/Diagnostic Data: Laboratory Results Test 04/28/24 11:09 04/28/24 05:40 04/26/24 04:51 04/25/24 23:30 POC Glucose 156 mg/dl (70-106) White Blood Count 7.9 10^3/uL (4.4-10.8) Red Blood Count 5.22 10^6/uL (4.5-5.90) Hemoglobin 15.5 g/dL (13.5-17.5) Hematocrit 48.7 % (41.0-53.0) Mean Corpuscular Volume 93.3 fL (80.0-100.0) Mean Corpuscular Hemoglobin 29.7 pg (28.0-32.0) Mean Corpuscular Hemoglobin Concent 31.8 g/dL (32.0-36.0) Red Cell Distribution Width 15.0 % (11.8-14.3) Platelet Count 242 10^3/uL (140-450) Mean Platelet Volume 9.5 fL (6.9-10.8) Neutrophils (%) (Auto) 56.8 % (37.0-80.0) Lymphocytes (%) (Auto) 28.5 % (10.0-50.0) Monocytes (%) (Auto) 12.3 % (0.0-12.0) Eosinophils (%) (Auto) 1.9 % (0.0-7.0) Basophils (%) (Auto) 0.5 % (0.0-2.0) Neutrophils # (Auto) 4.5 10 ^3/uL (1.6-8.6) Lymphocytes # (Auto) 2.3 10 ^3/uL (0.4-5.4) Monocytes # (Auto) 1.0 10 ^3/uL (0-1.3) Eosinophils # (Auto) 0.2 10 ^3/uL (0-0.8) Basophils # (Auto) 0 10 ^3/uL (0-0.2) Nucleated Red Blood Cells 0.2 % Sodium Level 138 mmol/L (136-145) Potassium Level 3.9 mmol/L (3.5-5.1) Chloride Level 103 mmol/L (98-107) Carbon Dioxide Level 25 mmol/L (20-31) Anion Gap 10 (5-15) Blood Urea Nitrogen 21 mg/dL (9-23) Creatinine 1.36 mg/dL (0.700-1.30) Glomerular Filtration Rate Calc 66 mL/min (>90) BUN/Creatinine Ratio 15.4 (10.0-20.0) Serum Glucose 100 mg/dL (74-106) Calcium Level 9.0 mg/dL (8.7-10.4) Hemoglobin A1c 5.8 % A1C (<5.7) Total Bilirubin 2.5 mg/dL (0.2-1.0) Aspartate Amino Transferase (AST) 641 U/L (13-40) Alanine Aminotransferase (ALT) 536 U/L (7-40) Alkaline Phosphatase 104 U/L (46-116) Total Protein 6.1 g/dL (5.7-8.2) Albumin 3.7 g/dL (3.2-4.8) Triglycerides Level 99 mg/dL (< 150) Cholesterol Level 131 mg/dL (< 200) LDL Cholesterol 101 mg/dL (< 100) HDL Cholesterol 22 mg/dL (40-59) Influenza Type A Antigen Negative (Negative) Influenza Type B Antigen Negative (Negative) SARS-CoV-2 Antigen (Rapid) Negative (NEGATIVE) Test 04/25/24 23:24 04/25/24 23:11 04/25/24 21:54 04/25/24 19:13 Thyroid Stimulating Hormone (TSH) 2.73 uIU/mL (0.55-4.78) Ammonia 33 umol/L (11-32) Prothrombin Time 15.3 sec (9.3-11.8) Prothrombin Time INR 1.50 (0.9-1.15) Activated Partial Thromboplast Time 29.9 SEC (24.5-34.5) D-Dimer, Quantitative 3.69 mg/L FEU (0.0-0.49) Magnesium Level 2.0 mg/dL (1.6-2.6) Troponin I High Sensitivity 52 ng/L (</=54) Plasma/Serum Blood Alcohol < 3.0 mg/dL (<10) B-Type Natriuretic Peptide 2582.97 pg/mL (0-100) Other Laboratory Tests 04/28/24 05:40 Brief Hx & Hospital Course: Patient is a 43-year-old male with past medical history of heart failure with reduced ejection fraction 15%, prediabetes, hypertension, who came in due to dyspnea. According to the patient, 2 weeks ago he contracted a flu-like illness with persistent cough from a sick contact which progressively worsened. Per patient, yesterday shortness of breaths and dyspnea worsened to the point where it was difficult for the patient to walk to the bathroom which is what prompted this visit to the hospital. Patient notes walking and exertion makes his shortness of breaths worse. Uses 2 pillows at night to sleep. BNP 2582, serial troponins 56, 55. EKG shows a left bundle branch block, however, unsure if this is new or not as previous EKGs not available for comparison. Chest x-ray showed moderate cardiomegaly. Hospital course: BNP was noted to be 2582. Cardiology was taken on board for possible catheterization as patient is planned ischemic workup in the outpatient has not been completed and patient was noted to have a left bundle branch on the EKG which we were not sure whether it was new for old as no previous EKG was available for comparison. Echocardiogram showed ejection fraction 10%, end- stage dilated cardiomyopathy. Right ventricular dysfunction. Biatrial enlargement. Moderate to severe mitral regurgitation and tricuspid regurgitation. Patient underwent a Cardiolite stress test which revealed ejection fraction of 11% with no relevant ischemia noted. It was decided to continue the patient on GDM T for CHF as tolerated. advisory services associate were consulted to arrange life vest for the patient as he was qualifying. Pulmonary embolism was ruled out with a lower extremity Doppler showing no right or left femoropopliteal venous thrombosis. Patient's hyperkalemia was managed with a hyperkalemia protocol and he was also continued on aspirin 81 mg, Jardiance 10 mg, furosemide 20 mg, metoprolol succinate 25 mg and valsartan 80 mg. Spironolactone was not started for the patient and patient was explained that it needs to be titrated as outpatient. Patient was also instructed to follow up with the terra cotta mason in the outpatient clinic regularly and at his earliest convenience for optimization of his medication management. On the day of discharge, patient appeared well and had stable vital signs. Patient's father was available at bedside were detailed discussions were held and all questions were answered. Patient's life vest by [employer] was delivered at bedside and patient was instructed to follow up with PCP at his earliest. Patient was also scheduled for discharge clinic. Patient was instructed to also follow up with pulmonology in the outpatient clinic for possible sleep study, patient demonstrated understanding. His hospital course was uncomplicated. Patient was prescribed aspirin 81 mg, atorvastatin 20 mg, Jardiance 10 mg, furosemide 20 mg, metoprolol succinate 25 mg and valsartan 80 mg. General Appearance: Cooperative. Well developed. Well nourished. NAD Head Exam: Normal inspection Neck Exam: Normal inspection. Non-tender. Normal alignment Pulmonary/Respiratory: Chest non-tender. Clear bilateral breath sounds, no crackles, no wheezing. Cardiovascular/Chest: Regular rate and rhythm. No murmurs. No JVD. Peripheral Pulses: 2+ Radial (R). 2+ Radial (L). 2+ Pedal (R). 2+ Pedal (L) Abdominal Exam: Normal bowel sounds. Soft. normal abdomen, no visible veins, Nontender. No hepatospenomegaly. No masses Lower extremities: Negative lower extremity edema Neuro/Mental Status: A&O x4. Coherent. Thoughts/Psych: Normal thought pattern. Appropriate mood and affect. Good judgement and insight Skin Exam: Normal inspection. Normal color. Warm. Dry Operations or Procedures Bilateral lower extremity venous duplex Clinical History: elevated ddimer, pain Comparison: None Technique: Duplex Doppler evaluation of the deep venous systems of both lower extremities from the common femoral veins to the popliteal veins including color Doppler and spectral/pulsed waveform analysis was performed. Findings: RIGHT SIDE: The common femoral vein demonstrates appropriate compressibility and waveform variability. There is compressibility/patency of the great saphenous vein at the proximal thigh. The femoral vein demonstrates appropriate compressibility and waveform variability. The deep femoral vein demonstrates appropriate compressibility and waveform variability. The popliteal vein demonstrates appropriate compressibility and waveform variability. There is normal compressibility at the tibioperoneal trunk. LEFT SIDE: The common femoral vein demonstrates appropriate compressibility and waveform variability. There is compressibility/patency of the great saphenous vein at the proximal thigh. The femoral vein demonstrates appropriate compressibility and waveform variability. The deep femoral vein demonstrates appropriate compressibility and waveform variability. The popliteal vein demonstrates appropriate compressibility and waveform variability. There is normal compressibility at the tibioperoneal trunk. Impression: No right or left femoropopliteal venous thrombosis. Medical History Medical History: CHF, Prediabetic, HTN, EF 10%, former smoker Allergies: Azithromycin, Avocado Stress Test Details Stress Test: Pharmacologic stress testing performed using 0.4 mg of regadenoson per 5 mL given IV over 10 seconds. Reason for pharmacologic stress test: CHF. HR Resting HR: 104 bpm Max Heart Rate (APMHR): 177.688087 bpm Max HR Achieved: 107 bpm Target HR (85% APMHR): 150.473854 bpm % of APMHR: 60.45 Recovery HR: 104 bpm BP Resting BP: 102/68 mmHg Recovery BP: 107/70 mmHg ECG Resting ECG: See Baseline Clinical Reason for Termination: Completed protocol Nurse Comments Uneventful test Stress ECG Conclusion severe dilated LV LVEF 11% decreased perfusion throughout myocraridum, fixed defect in septum and anterior wall , normal perfusion only in lateral wall no relevant ischemai noted NM EXAM: Myocardial Perfusion REST/STRESS Imaging Protocol: Rest Tc-99m/Stress Tc-99m 1 day Resting Data Rest SPECT myocardial perfusion imaging was performed in supine position 45 minutes following the intravenous injection of 12.3 mCi of Tc-99m Sestamibi. Time of rest injection: 0915 Time of rest imagin Administration Route: IV Administration Site: Left AC Pharmacologic Stress Pharmacologic stress test was performed by injecting Regadenoson 0.4 mg IV push followed by the intravenous injection of 31.2 mCi of Tc-99m Sestamibi. Time of stress injection: 1030 Time of stress imagin Administration Route: IV Administration Site: Left AC Gated Stress SPECT was performed 180 minutes after stress injection. The images were gated to evaluate regional wall motion and calculate left ventricular ejection fraction. Nuclear Conclusion severe dilated LV LVEF 11% decreased perfusion throughout myocraridum, fixed defect in septum and anterior wall , normal perfusion only in lateral wall no relevant ischemai noted Condition at Discharge: Fair Final Diagnosis/Problems List Acute on chronic heart failure with reduced ejection fraction 15% NSTEMI likely type 2 History of methamphetamine abuse End-stage dilated cardiomyopathy BALBIR, likely hemodynamically mediated/VMN Hyperkalemia Transaminitis Discharge Disposition: Home Discharge Instruct/Medications Diet: Cardiac 2g Na,low cholest Activity: No Restrictions, As Tolerated Follow Up/Referral: Please follow up with terra cotta mason in the outpatient clinic Please follow up with PCP within 1 week Please follow up in the discharge clinic Medications: Aspirin 81 mg daily Atorvastatin 40 mg daily Empagliflozin 10 mg p.o. daily Furosemide 20 mg p.o. daily Metoprolol 12.5 mg twice a day Valsartan 80 mg p.o. daily Discharge Statement: "Patient was advised to return to the ER or call 911 if any headaches, dizziness, shortness of breath, chest pain, abdominal pain, bleeding, fevers, or worsening of medical condition. Patient was counseled about treatment plan, medications, possible side effects, patientverbalized understanding. All questions were answered to the best of my ability. This discharge took greater then 30 minutes in planning, reviewing documentation, counseling the patient, and discussing with other team members." ASSESSMENT ASSESSMENT Assessment Acute on chronic heart failure with reduced ejection fraction 15% Likely NSTEMI History of methamphetamine abuse End-stage dilated cardiomyopathy [place], likely hemodynamically mediated/VMN Hyperkalemia Transaminitis Date of Service: Apr 28, 2024 Billing Provider: LOLY DUTTA MD Common Visit Codes: 85723-GIQ/OBS DISCH DAY >30min HANNAH HOPPER Apr 28, 2024 19:36 LOLY DUTTA MD Apr 30, 2024 15:54
== END 2024-04-28 16:15 | disposition home or self-care (01) | DRG 133 ==
LOC: ER 18:46 → OVERFLOW 22:32 → TELE-CENTR 23:54
PROVIDERS: ADMIT Student in an Organized Health Care Education/Training Program; ATTEND Student in an Organized Health Care Education/Training Program
DX: J96.01 Acute respiratory failure with hypoxia (principal); N17.0 Acute kidney failure with tubular necrosis; I21.A1 Myocardial infarction type 2; I50.23 Acute on chronic systolic (congestive) heart failure; I11.0 Hypertensive heart disease with heart failure; E11.9 Type 2 diabetes mellitus without complications; Z20.822 Contact with and (suspected) exposure to COVID-19; I08.1 Rheumatic disorders of both mitral and tricuspid valves; R74.01 Elevation of levels of liver transaminase levels; I44.7 Left bundle-branch block, unspecified; I49.3 Ventricular premature depolarization; E87.5 Hyperkalemia; I42.0 Dilated cardiomyopathy; F15.10 Other stimulant abuse, uncomplicated; Z82.49 Family history of ischemic heart disease and other diseases of the circulatory system; Z80.1 Family history of malignant neoplasm of trachea, bronchus and lung; Z88.1 Allergy status to other antibiotic agents; Z79.899 Other long term (current) drug therapy
CPT/HCPCS: 36415; 71046; 78452; 80048; 80053; 80061; 80320; 82140; 82962; 83036; 83735; 83880; 84132; 84443; 84484; 85025; 85379; 85610; 85730; 87426; 87804; 93005; 93017; 93306; 93970; G0378; J1815; J2470

== ENCOUNTER 2024-10-19 03:34 | Inpatient (IN) | payer MEDICAID ==
[~2024-10-19] VITALS: Ht 172.7 cm; Wt 68.0 kg
[~2024-10-19 03:34] MED LIST: ASPI-325 PO; ATOR20TA50 PO; EMPA1TAB PO; FURO20TA4 PO; METO-6 PO; VALS1TAB57 PO
--- NOTE | 2024-10-19 03:48 | ED.PDOC ---
SOB-HPI HPI Comments 43-year-old male with PMHX of CHF, HTN, and DM, presents to the ED via EMS with a chief complaint of SOB with associated cough for X2-3 days. Patient reports having this issue for months, but came to the ED upon worsening symptoms. Per EMS, patient had his pacemaker removed in September due to infection. Patient reports feeling worse without pacemaker, but states he has an upcoming appt. with the Automobile Contract Clerk on 11/15/24. Patient reports feeling incredibly exhausted, with an inability to walk less than 20 feet or walk up stairs. Patient has no further complaints at this time and otherwise denies further associated symptoms of chest pain, dizziness, N/V, fever, chills, or headache. REVIEW OF SYSTEMS: (+) Exhaustion. No fever, no chills HEENT: No sore throat, no earache, no congestion, no neck pain. Cardiac: No chest pain. No palpitations. Lungs: (+) shortness of breath, (+) cough. GI: No nausea, no vomiting, no diarrhea, no constipation, no abdominal pain : No dysuria, frequency, or urgency. No hematuria. Musculoskeletal: No joint pain , no joint swelling, no extremity edema. Skin: No rash, no itching. Neuro: No headache, no dizziness, no weakness EXAM: General: Awake, alert and oriented. No acute distress. Skin: Skin in warm, dry and intact. Appropriate color for ethnicity. HEENT: The head is normocephalic and atraumatic. Conjunctivae are clear without exudates or hemorrhage. Sclera is non-icteric. EOM are intact. No signs of nystagmus. Eyelids are normal in appearance without swelling or lesions. Oral mucosa is pink and moist Neck: The neck is supple with normal range of motion. No JVD. Cardiac: Heart rate and rhythm are normal. No murmurs, gallops, or rubs are auscultated. Respiratory: (+) Slow Right and Bilateral Rales Abdominal: Abdomen is soft, non-tender without distention. Bowel sounds are present and normoactive in all four quadrants. Extremities: Upper and lower extremities are atraumatic in appearance without deformity or edema. Neurological: The patient is awake, alert and oriented to person, place, and time with normal speech. Speech is clear. There is no facial asymmetry. Psychiatric: Appropriate mood and affect. Good judgement and insight. Chief Complaint: SOB Time Seen by MD: 03:48 Primary Care Provider: lauro Russell notes: Plastic Jig And Fixture Builder Notes, Medications, Allergies Information Source: Patient, Emergency Med Personnel Mode of Arrival: EMS Severity: Moderate Duration: Since onset Context: At Rest, With Light Exertion, With Heavy Exertion History of: CHF Associated Signs and Symptoms: Cough, Other (SOB ) Past Medical History PAST MEDICAL HISTORY: CHF, DM, High Lipids, HTN Surgical History: Denies all surgeries Family History Family History: Reviewed,noncontributory to illness, No family hx of Cancer, No family hx of DM, No family hx of Heart sonia, No family hx of HTN, No family hx ofKidney sonia, No family hx of Liver sonia, No family hx of Lung sonia, No family hx of Stroke Social History Smoker: Non-Smoker Alcohol: Denies ETOH Use Drugs: Denies Drug Use Lives In: Home EKG EKG : Pulse Rate (adult): 106 [place]: Normal Cardiac Rhythm: ST ST: Ant, Infarct Comments Biatrial Enlargement Was a procedure done? Was a procedure done?: No Differential Dx Differential Diagnosis: Anxiety, Asthma, Bronchitis, CHF, COPD, Hypertension, Pneumonia, Pneumothorax, Sinusitis, Pharyngitis X-Ray, Labs, Meds, VS Vital Signs Date Time Temp Pulse Resp B/P (MAP) Pulse Ox O2 Delivery O2 Flow Rate FiO2 10/19/24 07:25 66 17 97 Nasal Cannula* 1 24 10/19/24 07:25 97.3 66 17 114/76 (89) 97 97.3 10/19/24 07:22 114/76 10/19/24 06:26 101 10/19/24 04:06 97.5 104 18 129/77 99 97.5 10/19/24 03:54 106 10/19/24 03:41 106 Lab Test 10/19/24 07:11 10/19/24 05:28 10/19/24 04:18 Range/Units Troponin I High Sensitivity Pending 57 *H 63 *H </=54 ng/L White Blood Count 7.3 4.4-10.8 10^3/uL Red Blood Count 4.91 4.5-5.90 10^6/uL Hemoglobin 15.4 13.5-17.5 g/dL Hematocrit 46.0 41.0-53.0 % Mean Corpuscular Volume 93.6 80.0-100.0 fL Mean Corpuscular Hemoglobin 31.3 28.0-32.0 pg Mean Corpuscular Hemoglobin Concent 33.5 32.0-36.0 g/dL Red Cell Distribution Width 14.6 H 11.8-14.3 % Platelet Count 255 140-450 10^3/uL Mean Platelet Volume 8.9 6.9-10.8 fL Neutrophils (%) (Auto) 56.4 37.0-80.0 % Lymphocytes (%) (Auto) 32.1 10.0-50.0 % Monocytes (%) (Auto) 8.7 0.0-12.0 % Eosinophils (%) (Auto) 1.8 0.0-7.0 % Basophils (%) (Auto) 1.0 0.0-2.0 % Neutrophils # (Auto) 4.1 1.6-8.6 10 ^3/uL Lymphocytes # (Auto) 2.3 0.4-5.4 10 ^3/uL Monocytes # (Auto) 0.6 0-1.3 10 ^3/uL Eosinophils # (Auto) 0.1 0-0.8 10 ^3/uL Basophils # (Auto) 0.1 0-0.2 10 ^3/uL Nucleated Red Blood Cells 0.2 % Sodium Level 138 136-145 mmol/L Potassium Level 3.8 3.5-5.1 mmol/L Chloride Level 105 98-107 mmol/L Carbon Dioxide Level 20 20-31 mmol/L Anion Gap 13 5-15 Blood Urea Nitrogen 37 H 9-23 mg/dL Creatinine 1.55 H 0.700-1.30 mg/dL Glomerular Filtration Rate Calc 56 >90 mL/min BUN/Creatinine Ratio 23.9 H 10.0-20.0 Serum Glucose 113 H 74-106 mg/dL Calcium Level 9.0 8.7-10.4 mg/dL B-Type Natriuretic Peptide 2848.87 0-100 pg/mL Current Medications Medications (Trade) Dose Ordered Sig/Ayan Route Start Time Stop Time Status Last Admin Furosemide (Lasix Injection) 40 mg ONCE ONCE IV 10/19/24 04:15 10/19/24 04:16 DC 10/19/24 07:22 Time of 1ST Reevaluation: 04:21 Reevaluation 1ST: Unchanged Patient Education/Counseling: Need For Follow Up Family Education/Counseling: No Family Present SEPSIS Sepsis Screen Physician Orders Chest Xray 1 View (10/19/24 04:01) Troponin-I Hs (10/19/24 07:01) Vital Signs Date Time Temp Pulse Resp B/P (MAP) Pulse Ox O2 Delivery O2 Flow Rate FiO2 10/19/24 07:25 66 17 97 Nasal Cannula* 1 24 10/19/24 07:25 97.3 66 17 114/76 (89) 97 97.3 10/19/24 07:22 114/76 10/19/24 06:26 101 10/19/24 04:06 97.5 104 18 129/77 99 97.5 10/19/24 03:54 106 10/19/24 03:41 106 Laboratory Tests Test 10/19/24 04:18 White Blood Count 7.3 10^3/uL (4.4-10.8) Medications Medications Dose Ordered Sig/Ayan Route Start Time Stop Time Status Last Admin Dose Admin Furosemide 40 mg ONCE ONCE IV 10/19/24 04:15 10/19/24 04:16 DC 10/19/24 07:22 Departure 1 Departure Time of Disposition: 07:42 (Patient with worsening shortness of breath and concerning for chf exacerbation. Will admit for further workup) Impression: Primary Impression: Acute on chronic systolic (congestive) heart failure Additional Impression: Shortness of breath Disposition: 09 ADMITTED INPATIENT Admit to: Tele Condition: Guarded Critical Care Note Critical Care Time?: No Stability Stability form required: No Heart Score Heart Score: Heart Score Response (Comments) Value History Moderate Suspicious 1 EKG Normal 0 Age <45 0 Risk Factors >3 or Hx ASHD 2 Troponin Normal limit 0 Total 3 I personally scribed for MIRIAM WILDE MD ([email or web address]) on 10/19/24 at 03:48. Electronically submitted by Harper Mccall ([employer]). I personally scribed for MIRIAM WILDE MD ([email or web address]) on 10/19/24 at 03:54. Electronically submitted by Harper Mccall ([employer]). I personally scribed for MIRIAM WILDE MD ([email or web address]) on 10/19/24 at 03:58. Electronically submitted by Harper Mccall ([employer]). I personally scribed for MIRIAM WILDE MD ([email or web address]) on 10/19/24 at 03:59. Electronically submitted by Harper Mccall ([employer]). I personally scribed for MIRIAM WILDE MD ([email or web address]) on 10/19/24 at 04:16. Electronically submitted by Harper Mccall ([employer]). MIRIAM WILDE MD Oct 19, 2024 03:48 GEORGETTE ROSA MD Oct 19, 2024 07:45
--- NOTE | 2024-10-19 03:56 | ECG ---
[facility] Test Date: 2024-10-19 Test Time: 03:41:28 Pat Name: JENNIFER SANDY Department: ED Room: Gender: M Personal Injury Paralegal: cesar : 1980 Requested By: EMERGENCY EMERGENCY Order Number: [id number] Reading MD: Measurements Intervals [place] Rate: 106 P: 82 PA: 133 QRS: 182 QRSD: 180 T: -6 QT: 417 QTc: 554 Interpretive Statements Sinus tachycardia Biatrial enlargement Anterolateral infarct, acute (LAD) Prolonged QT interval Please click the below link to view image of tracing.
[2024-10-19 04:37] LABS: Hematocrit 46.0 % (41.0-53.0); Hemoglobin 15.4 g/dL (13.5-17.5); Mean Corpuscular Hemoglobin 31.3 pg (28.0-32.0); Mean Corpuscular Volume 93.6 fL (80.0-100.0); Nucleated Red Blood Cells % 0.2 %
[2024-10-19 04:38] LABS: Chloride 105 mmol/L (98-107); Potassium 3.8 mmol/L (3.5-5.1); Sodium 138 mmol/L (136-145)
[2024-10-19 04:39] LABS: Anion Gap 13 (5-15); Calcium 9.0 mg/dL (8.7-10.4); Carbon Dioxide 20 mmol/L (20-31)
[2024-10-19 04:44] LABS: BUN/Creatinine Ratio 23.9 (10.0-20.0)
[2024-10-19 04:46] LABS: Blood Urea Nitrogen 37 mg/dL (9-23); Glucose 113 mg/dL (74-106)
--- NOTE | 2024-10-19 05:33 | DVH ---
CHEST RADIOGRAPH Indication: SHORTNESS OF BREATH, HISTORY OF CHF Technique: Single frontal view of the chest was obtained COMPARISON: XY CHEST TWO VIEWS ROUTINE on DOS: 04/25/24 FINDINGS: Lines and Tubes: None Lungs: Clear Pleura: No effusion. No pneumothorax. Cardiomediastinal contours: Cardiomegaly. Bones: Unremarkable IMPRESSION: 1. Cardiomegaly.
[2024-10-19] MEDS: FUROSEMIDE 40 MG/4 ML VIAL IV ONE (07:22)
[2024-10-19 07:25] VITALS: PULSE 66; RESP 17; O2SAT 97
[2024-10-19] MEDS ORDERED: DOCUSATE SOD 100 MG CAP PO PRN (11:00)
[2024-10-19] MEDS ORDERED: HYDROcodone-ACET 5/325MG TAB PO PRN (11:00)
[2024-10-19] MEDS ORDERED: NITROGLYCERIN 0.4 MG SL TAB SL PRN (11:00)
[2024-10-19] MEDS ORDERED: MORPHINE SULFATE INJ 2 MG/ml SYRG IV PRN (11:00)
[2024-10-19] MEDS ORDERED: ACETAMINOPHEN 325 MG TAB PO PRN (11:00)
[2024-10-19] MEDS ORDERED: ONDANSETRON HCL 4 MG/2 ML VIAL IV PRN (11:00)
[2024-10-19] MEDS ORDERED: DEXTROSE (50%) 50ML SYRG IV PRN (11:15)
--- NOTE | 2024-10-19 11:17 | DVHHP2 ---
History of Present Illness Reason for Visit: Chest pain History of Present Illness Grant Mota is a 44-year-old male with past medical history of CHF, hyperlipidemia, and diabetes who came to the hospital for shortness of breath. Patient states he has been experiencing worsening shortness of breath for the last week. He states he has been unable to lay down to sleep for the last couple of days. Patient was seen here in April for CHF exacerbation. At that time an ECHO was completed that showed EF of 10%, with moderate to severe mitral and tricuspid regurgitation. His primary technology sales specialist is Dr. Engle. He followed up with him outpatient. He had an ACID placed by hand shaker in May. the site became infected so the unit was removed in September 2024. Patient states he has not felt well since the AICD was removed. Cardiovascular: CHF, hyperipidemia, Other (AICD placed May 2024 then removed September 2024) Endocrine: Diabetes Past Surgical History: Other (AICD May 2024 and removed September 2024) Smoke: <1 pack per day (Vape) ALCOHOL: none Drugs: None Lives: with Family Domestic Violence: Neg Review of Systems Constitutional: No: Fever, Chills, Sweats, Weakness, Malaise, Other Eyes: No: Pain, Vision change, Conjunctivae inflammation, Eyelid inflammation, Other, Redness ENT: No: Ear pain, Ear discharge, Nose pain, Nose discharge, Nose congestion, Mouth pain, Mouth swelling, Throat pain, Throat swelling, Other Respiratory: Shortness of breath, SOB with excertion; No: Cough, Dry, Wheezing, Hemoptysis, Pleuritic Pain, Sputum, Wheezing, Other Cardiovascular: Chest Pain; No: Palpitations, Orthopnea, Paroxysmal Noc. Dyspnea, Edema, Lt Headedness, Other Gastrointestinal: No: Nausea, Vomiting, Abdominal Pain, Diarrhea, Constipation, Melena, Hematochezia, Other Genitourinary: No Dysuria, No Frequency, No Incontinence, No Hematuria, No Retention, No Other Musculoskeletal: No: other, neck pain, shoulder pain, arm pain, back pain, hand pain, leg pain, foot pain Skin: No: Rash, Lesions, Jaundice, Bruising, Other Neurological: No: Weakness, Numbness, Incoordination, Change in speech, Confusion, Seizures, Other Allergies: Coded Allergies: Azithromycin (Verified Allergy, Unknown, 04/25/24) Exam Vital Signs Vital Signs Date Time Temp Pulse Resp B/P (MAP) Pulse Ox O2 Delivery O2 Flow Rate FiO2 10/19/24 07:25 66 17 97 Nasal Cannula* 1 24 10/19/24 07:25 97.3 114/76 (89) 97.3 General Appearance: Alert, Oriented X3, Cooperative, mild distress HEENT: Atraumatic, PERRLA Cardiovascular: Other (ST) Abdominal: Normal bowel sounds, Soft, No tenderness Extremities: No clubbing, No cyanosis, No edema, Normal pulses, No tenderness/swelling Skin: No rashes, No breakdown, No significant lesion Neuro: Normal gait, Normal speech, Strength at 5/5 X4 ext, Normal tone Psych/Mental Status: Mental status NL, Mood NL Labs/Xrays Labs Test 10/19/24 07:11 10/19/24 04:18 Range/Units Troponin I High Sensitivity 55 *H </=54 ng/L White Blood Count 7.3 4.4-10.8 10^3/uL Red Blood Count 4.91 4.5-5.90 10^6/uL Hemoglobin 15.4 13.5-17.5 g/dL Hematocrit 46.0 41.0-53.0 % Mean Corpuscular Volume 93.6 80.0-100.0 fL Mean Corpuscular Hemoglobin 31.3 28.0-32.0 pg Mean Corpuscular Hemoglobin Concent 33.5 32.0-36.0 g/dL Red Cell Distribution Width 14.6 H 11.8-14.3 % Platelet Count 255 140-450 10^3/uL Mean Platelet Volume 8.9 6.9-10.8 fL Neutrophils (%) (Auto) 56.4 37.0-80.0 % Lymphocytes (%) (Auto) 32.1 10.0-50.0 % Monocytes (%) (Auto) 8.7 0.0-12.0 % Eosinophils (%) (Auto) 1.8 0.0-7.0 % Basophils (%) (Auto) 1.0 0.0-2.0 % Neutrophils # (Auto) 4.1 1.6-8.6 10 ^3/uL Lymphocytes # (Auto) 2.3 0.4-5.4 10 ^3/uL Monocytes # (Auto) 0.6 0-1.3 10 ^3/uL Eosinophils # (Auto) 0.1 0-0.8 10 ^3/uL Basophils # (Auto) 0.1 0-0.2 10 ^3/uL Nucleated Red Blood Cells 0.2 % Sodium Level 138 136-145 mmol/L Potassium Level 3.8 3.5-5.1 mmol/L Chloride Level 105 98-107 mmol/L Carbon Dioxide Level 20 20-31 mmol/L Anion Gap 13 5-15 Blood Urea Nitrogen 37 H 9-23 mg/dL Creatinine 1.55 H 0.700-1.30 mg/dL Glomerular Filtration Rate Calc 56 >90 mL/min BUN/Creatinine Ratio 23.9 H 10.0-20.0 Serum Glucose 113 H 74-106 mg/dL Calcium Level 9.0 8.7-10.4 mg/dL B-Type Natriuretic Peptide 2848.87 0-100 pg/mL CHEST RADIOGRAPH FINDINGS: Lines and Tubes: None Lungs: Clear Pleura: No effusion. No pneumothorax. Cardiomediastinal contours: Cardiomegaly. Bones: Unremarkable IMPRESSION: 1. Cardiomegaly. SEPSIS Sepsis Screen Date sepsis recognized/suspect: Oct 19, 2024 Time Sepsis recognized/suspect: 726 Recent Procedure: No On Antibiotic Therapy: No Respiratory Rate >20: No Heart Rate >90: No Temp<36 C (96.8 F) or >38.3 C: No SBP <90 or MAP <65 mmHG: No New Acute Mental Status Change: No Is the patient on CPAP, BIPAP,: No Physician Orders Chest Xray 1 View (10/19/24 04:01) Admit (10/19/24 10:54) Code Status (10/19/24 10:54) 2 Gm Sodium Diet (10/19/24 Lunch) Sodium Chloride Lock (Saline Lock Ns) (10/19/24 14:00) Hydrocodone-Acet 5/325mg Tab ([place] 5/32 (10/19/24 11:00) Ondansetron Hcl (Zofran) (10/19/24 11:00) Docusate Sodium Capsule (Colace Capsule) (10/19/24 11:00) Complete Blood Count (10/20/24 04:00) Comprehensive Metabolic Panel (10/20/24 04:00) Condition: Serious (10/19/24 10:54) Acetaminophen Tablet (Tylenol Tablet) (10/19/24 11:00) Nitroglycerin Sublingual (Ntrostat Subli (10/19/24 11:00) Morphine Sulfate Injection (10/19/24 11:00) Stat Ekg For Chest Pain (10/19/24 10:54) Notify Md Of Changes From Base (10/19/24 10:54) Account Development Specialist For 24 Hours (10/19/24 10:54) Emergency Dysrhythmia Protocol (10/19/24 10:54) Rhythm Strips Once Every Shift (10/19/24 10:54) Oxygen By Nasal Cannula (10/19/24 10:54) Aspirin Enteric Coated Tablet (Ecotrin E (10/20/24 10:00) Atorvastatin (Lipitor) (10/20/24 10:00) Empagliflozin (Jardiance) (10/20/24 10:00) Metoprolol Xl Succinate (Toprol Xl) (10/20/24 10:00) Vital Signs Date Time Temp Pulse Resp B/P (MAP) Pulse Ox O2 Delivery O2 Flow Rate FiO2 10/19/24 07:25 66 17 97 Nasal Cannula* 1 24 10/19/24 07:25 97.3 66 17 114/76 (89) 97 97.3 10/19/24 07:22 114/76 10/19/24 06:26 101 10/19/24 04:06 97.5 104 18 129/77 99 97.5 10/19/24 03:54 106 10/19/24 03:41 106 Laboratory Tests Test 10/19/24 04:18 White Blood Count 7.3 10^3/uL (4.4-10.8) Medications Medications Dose Ordered Sig/Ayan Route Start Time Stop Time Status Last Admin Dose Admin Furosemide 40 mg ONCE ONCE IV 10/19/24 04:15 10/19/24 04:16 DC 10/19/24 07:22 40 MG Assessment/Plan Assessment/Plan Assessment: Acute on chronic systolic (congestive) heart failure, Acute kidney injury, Cardiomegaly, Diabetes, Hyperlipidemia, Plan: Admit to Tele, Cardiology consult, IV Lasix, UA, UDS, Breathing treatments, Accu checks Q AC&HS with sliding scale, Home medications reconciled, Plan discussed with: Patient My Orders Orders - BRIAN MAYFIELD Procedure Category Date Status Time Admit ADMIT 10/19/24 Verified 10:54 Code Status CODE 10/19/24 Verified 10:54 2 Gm Sodium Diet DIET 10/19/24 Verified Lunch Sodium Chloride Lock PHA 10/19/24 Verified (Saline Lock Ns) 14:00 Hydrocodone-Acet PHA 10/19/24 Verified 5/325mg Tab ([place] 11:00 Ondansetron Hcl PHA 10/19/24 Verified (Zofran) 11:00 Docusate Sodium PHA 10/19/24 Verified Capsule (Colace 11:00 Complete Blood Count LAB 10/20/24 Verified 04:00 Comprehensive LAB 10/20/24 Verified Metabolic Panel 04:00 Condition: Serious AIDEN 10/19/24 Verified 10:54 Acetaminophen Tablet PHA 10/19/24 Verified (Tylenol Tablet) 11:00 Nitroglycerin PHA 10/19/24 Verified Sublingual (Ntrostat 11:00 Morphine Sulfate PHA 10/19/24 Verified Injection 11:00 Stat Ekg For Chest [facility] 10/19/24 Verified Pain 10:54 Notify Md Of Changes [facility] 10/19/24 Verified From Base 10:54 Account Development Specialist For [facility] 10/19/24 Verified 24 Hours 10:54 Emergency Dysrhythmia [facility] 10/19/24 Verified Protocol 10:54 Rhythm Strips Once [facility] 10/19/24 Verified Every Shift 10:54 Oxygen By Nasal RT 10/19/24 Verified Cannula 10:54 Aspirin Enteric PHA 10/20/24 Verified Coated Tablet 10:00 Atorvastatin (Lipitor) PHA 10/20/24 Verified 10:00 Empagliflozin PHA 10/20/24 Verified (Jardiance) 10:00 Metoprolol Xl PHA 10/20/24 Verified Succinate (Toprol Xl) 10:00 Date of Service: Oct 19, 2024 Billing Provider: BRIAN MAYFIELD Common Visit Codes: [id number] INP/OBS CARE (MOD) BRIAN MAYFIELD Oct 19, 2024 11:17
[2024-10-19] MEDS: ACCU-CHEK COMFORT CURVE STRIP VI SCH (11:30)
[2024-10-19] MEDS: InsuLIN REG 1unit/0.01ml Soln (100units/ml) SC SCH (12:46)
[2024-10-19 14:12] VITALS: BP 101/76; PULSE 101; RESP 16; TEMP 98.1; O2SAT 95
[2024-10-19] MEDS: SODIUM CHLOR 0.9% PF (SALINE LOCK) 10ML VIAL/SYR IV SCH (14:22)
[2024-10-19] MEDS ORDERED: InsuLIN REG 1unit/0.01ml Soln (100units/ml) SC SCH (22:00)
[2024-10-20] MEDS ORDERED: METOPROLOL SUCCINATE XL 50 MG TAB PO SCH (10:00)
[2024-10-20] MEDS ORDERED: ASPirin-EC 81 mg tab PO SCH (10:00)
[2024-10-20] MEDS ORDERED: ATORVASTATIN 20 MG TAB PO SCH (10:00)
[2024-10-20] MEDS ORDERED: EMPAGLIFLOZIN 10 MG TAB PO SCH (10:00)
== END 2024-10-19 18:46 | disposition left against medical advice (07) | DRG 194 ==
LOC: ER 03:34 → EDBD 03:34 → OVERFLOW 10:54
PROVIDERS: ADMIT Nurse Practitioner Family; ATTEND Nurse Practitioner Family
DX: I11.0 Hypertensive heart disease with heart failure (principal); N17.9 Acute kidney failure, unspecified; I50.23 Acute on chronic systolic (congestive) heart failure; I08.1 Rheumatic disorders of both mitral and tricuspid valves; E11.9 Type 2 diabetes mellitus without complications; E78.5 Hyperlipidemia, unspecified; Z53.29 Procedure and treatment not carried out because of patient's decision for other reasons; Z88.1 Allergy status to other antibiotic agents; Z87.891 Personal history of nicotine dependence; Z95.810 Presence of automatic (implantable) cardiac defibrillator
CPT/HCPCS: 36415; 71045; 80048; 82962; 83880; 84484; 85025; 93005; 96374; 96375; G0378